=== PATIENT | male | born 1970 | race Caucasian/White ===

== ENCOUNTER 2023-04-05 16:45 | Emergency (ER) | payer OTHER, SELFPAY ==
[2023-04-05] VITALS (11 sets, daily range): BP systolic 126–176; BP diastolic 74–95; PULSE 66–98; RESP 14–16; TEMP 36.8; O2SAT 92–100; BMI 26.4
--- NOTE | 2023-04-05 17:23 | ED.MALEGU ---
HPI - Male Genitourinary <Dottie Bull MD - Last Filed: 04/06/23 08:00> General Chief complaint: Urogenital-Male Stated complaint: kidney stone Time Seen by Provider: 04/05/23 16:51 History of Present Illness HPI Narrative: 53-year-old male presents for left-sided flank pain. Two days ago patient was in [facility] and diagnosed with a 9 mm left-sided kidney stone. He states he was told that everything else was ?normal? and discharged home with oxycodone, Flomax, and Zofran. Patient has been taking his pain medications, however his pain is worsening and not controlled with his home medications. He is here today for pain control. He was planning to call a urologist for a follow-up appointment when business hours resume on Thursday. Related Data Previous Rx's Medication Instructions Recorded hydrocodone 5 mg-acetaminophen 325 2 tab PO Q6H PRN pain #20 tabs 04/05/23 mg tablet ondansetron 4 mg disintegrating 4 mg PO Q8H PRN nausea and 04/05/23 tablet vomiting #10 tabs tamsulosin 0.4 mg capsule (Flomax) 0.4 mg PO BEDTIME #10 caps 04/05/23 Allergies Allergy/AdvReac Type Severity Reaction Status Date / Time No Known Drug Allergies Allergy Verified 04/05/23 17:29 Review of Systems <Dottie Bull MD - Last Filed: 04/06/23 08:00> Review of Systems Narrative: CONSTITUTIONAL- Denies: fever, chills, fatigue HEENT- Denies: sore throat, nosebleed, vision changes RESPIRATORY- Denies: shortness of breath, cough, wheezing CARDIAC- Denies: chest pain, edema, orthopnea GI- Denies: abdominal pain, nausea, vomiting, constipation, diarrhea -reports: Flank pain Denies: frequency, dysuria, hematuria MSK- Denies: extremity pain, extremity swelling, joint pain, joint swelling SKIN- Denies: rash, itching, burn, swelling NEUROLOGICAL- Denies: headache, numbness, weakness, dizziness PSYCHIATRIC- Denies: anxiety, depression, suicidal ideation, homicidal ideation Patient History <Dottie Bull MD - Last Filed: 04/06/23 08:00> Social History Smoking Status: Never smoker Smoking Status: Never smoker Exam <Dottie Bull MD - Last Filed: 04/06/23 08:00> Initial Vital Signs Initial Vital Signs: Vital Signs Temperature 98.3 F 04/05/23 16:47 Pulse Rate 98 H 04/05/23 16:47 Respiratory Rate 16 04/05/23 16:47 Blood Pressure 144/86 H 04/05/23 16:47 Pulse Oximetry 97 04/05/23 16:47 Oxygen Delivery Method Room Air 04/05/23 16:47 Const: Well-nourished, Well-developed, appears stated age Eyes: PERRL, EOMI, conjunctiva normal ENT: Atraumatic, dentition normal, mucous membranes moist Cardiac: regular rate, regular rhythm RESP: unlabored, clear bilaterally, no wheezing GI: Atraumatic, soft, nontender, nondistended, no rebound, no guarding MSK: Atraumatic, full range of motion, pulses equal Skin: Warm, Dry, intact, no rashes Neuro: AO x3, CN II-XII grossly intact, moves all extremities Psych: affect normal, mood normal, not suicidal, not homicidal <Shannan Carey DO - Last Filed: 04/06/23 01:07> Initial Vital Signs Initial Vital Signs: Vital Signs Temperature 98.3 F 04/05/23 16:47 Pulse Rate 98 H 04/05/23 16:47 Respiratory Rate 16 04/05/23 16:47 Blood Pressure 144/86 H 04/05/23 16:47 Pulse Oximetry 97 04/05/23 16:47 Oxygen Delivery Method Room Air 04/05/23 16:47 Course <Dottie Bull MD - Last Filed: 04/06/23 08:00> Course Course Narrative: Persistent flank pain in patient with known 9 mm kidney stone. We will check labs and will order pain medications. Orders Ordered: Discontinued Medications Hydromorphone HCl (Hydromorphone 0.5 Mg Inj) 0.5 mg IV NOW ONE Stop: 04/05/23 19:47 Last Admin: 04/05/23 19:54 Dose: 0.5 mg Documented By: KLS Sodium Chloride (Normal Saline 0.9%) 1,000 mls @ 1,000 mls/hr IV BOLUS ONE Stop: 04/05/23 18:16 Last Infusion: 04/05/23 18:59 Dose: 0 mls/hr Documented By: Admin: 04/05/23 17:30 Dose: 1,000 mls/hr Documented By: EDMOND Ketorolac Tromethamine (Ketorolac 30 Mg/Ml Vial) 15 mg IV NOW ONE Stop: 04/05/23 17:18 Last Admin: 04/05/23 17:26 Dose: 15 mg Documented By: EDMOND Morphine Sulfate (Morphine 4 Mg/Ml Inj) 4 mg IV NOW ONE Stop: 04/05/23 17:45 Last Admin: 04/05/23 17:53 Dose: 4 mg Documented By: SUKHWINDER Reevaluation(s) Reevaluation #1: Creatinine 1.8, GFR 44. No previous for comparison. Patient states he does not have his lab results from his previous ER visit 2 days ago, but was told that everything was ?normal?. Given that patient has no 9 mm kidney stone we will obtain renal ultrasound to assess for hydro or other acute abnormalities. Pain is still present despite Toradol, will give morphine. IV fluids are running. Reevaluation #2: Care of patient signed out to Dr. Carey at 1830 Vital Signs Vital signs: Vital Signs - 8 hr 04/05/23 17:53 04/05/23 17:53 04/05/23 18:00 Pulse Rate 76 Respiratory Rate Blood Pressure 142/78 H 126/77 Pulse Oximetry 94 Oxygen Delivery Method 04/05/23 18:00 04/05/23 18:15 04/05/23 18:15 Pulse Rate 77 74 Respiratory Rate Blood Pressure 151/86 H Pulse Oximetry 92 95 Oxygen Delivery Method Room Air 04/05/23 18:40 04/05/23 18:41 04/05/23 18:41 Pulse Rate 78 76 Respiratory Rate Blood Pressure 139/81 Pulse Oximetry 94 94 Oxygen Delivery Method 04/05/23 18:45 04/05/23 18:45 04/05/23 19:00 Pulse Rate 74 Respiratory Rate Blood Pressure 133/74 137/81 Pulse Oximetry 93 Oxygen Delivery Method 04/05/23 19:00 04/05/23 19:15 04/05/23 19:15 Pulse Rate 66 72 Respiratory Rate 14 Blood Pressure 147/95 H Pulse Oximetry 93 94 Oxygen Delivery Method 04/05/23 20:22 04/05/23 20:23 04/05/23 20:23 Pulse Rate 72 Respiratory Rate Blood Pressure 176/86 H Pulse Oximetry 100 98 Oxygen Delivery Method Room Air <Shannan Carey DO - Last Filed: 04/06/23 01:07> Orders Ordered: Discontinued Medications Hydromorphone HCl (Hydromorphone 0.5 Mg Inj) 0.5 mg IV NOW ONE Stop: 04/05/23 19:47 Last Admin: 04/05/23 19:54 Dose: 0.5 mg Documented By: GODWIN Sodium Chloride (Normal Saline 0.9%) 1,000 mls @ 1,000 mls/hr IV BOLUS ONE Stop: 04/05/23 18:16 Last Infusion: 04/05/23 18:59 Dose: 0 mls/hr Documented By: Admin: 04/05/23 17:30 Dose: 1,000 mls/hr Documented By: EDMOND Ketorolac Tromethamine (Ketorolac 30 Mg/Ml Vial) 15 mg IV NOW ONE Stop: 04/05/23 17:18 Last Admin: 04/05/23 17:26 Dose: 15 mg Documented By: EDMOND Morphine Sulfate (Morphine 4 Mg/Ml Inj) 4 mg IV NOW ONE Stop: 04/05/23 17:45 Last Admin: 04/05/23 17:53 Dose: 4 mg Documented By: SUKHWINDER Vital Signs Vital signs: Vital Signs - 8 hr 04/05/23 17:53 04/05/23 17:53 04/05/23 18:00 Pulse Rate 76 Respiratory Rate Blood Pressure 142/78 H 126/77 Pulse Oximetry 94 Oxygen Delivery Method 04/05/23 18:00 04/05/23 18:15 04/05/23 18:15 Pulse Rate 77 74 Respiratory Rate Blood Pressure 151/86 H Pulse Oximetry 92 95 Oxygen Delivery Method Room Air 04/05/23 18:40 04/05/23 18:41 04/05/23 18:41 Pulse Rate 78 76 Respiratory Rate Blood Pressure 139/81 Pulse Oximetry 94 94 Oxygen Delivery Method 04/05/23 18:45 04/05/23 18:45 04/05/23 19:00 Pulse Rate 74 Respiratory Rate Blood Pressure 133/74 137/81 Pulse Oximetry 93 Oxygen Delivery Method 04/05/23 19:00 04/05/23 19:15 04/05/23 19:15 Pulse Rate 66 72 Respiratory Rate 14 Blood Pressure 147/95 H Pulse Oximetry 93 94 Oxygen Delivery Method 04/05/23 20:22 04/05/23 20:23 04/05/23 20:23 Pulse Rate 72 Respiratory Rate Blood Pressure 176/86 H Pulse Oximetry 100 98 Oxygen Delivery Method Room Air MDM - Male Genitourinary <Dottie Bull MD - Last Filed: 04/06/23 08:00> Lab Data 04/05/23 17:15 04/05/23 17:15 Labs: Lab Results 04/05/23 04/05/23 04/05/23 Range/Units 17:15 17:15 18:57 WBC 6.7 (4.5-11.0) X10^3/uL RBC 4.22 L (4.5-5.9) X10^6/uL Hgb 13.6 (13.5-17.5) g/dL Hct 39.2 L (41-53) % MCV 93.0 (80-100) fL MCH 32.3 (26-34) PG MCHC 34.7 (30-36) % RDW 12.9 (11.6-14.8) % Plt Count 166 (150-400) X10^3/uL Neut % (Auto) 65.6 (50-75) % Lymph % (Auto) 21.2 L (25-40) % Hughes % (Auto) 11.8 (3-14) % Eos % (Auto) 0.8 L (2-4) % Baso % (Auto) 0.6 (0-2) % Neut # (Auto) 4400 (4658-6197) /uL Lymph # (Auto) 1400 (8240-0041) /uL Hughes # (Auto) 800 (0-900) /uL Eos # (Auto) 100 (0-450) /uL Baso # (Auto) 0 (0-100) /uL Sodium 136 L (137-145) mmol/L Potassium 4.0 (3.4-5.1) mmol/L Chloride 103 (98-107) mmol/L Carbon Dioxide 26 (22-32) mmol/L BUN 13 (9-20) mg/dL Creatinine 1.82 H (0.66-1.25) mg/dL Estimated GFR 44 L (>60) mL/min BUN/Creatinine Ratio 7.1 (6-22) Glucose 115 H (70-100) mg/dL Calcium 8.7 (8.4-10.2) mg/dL Total Bilirubin 0.4 (0.2-1.3) mg/dL AST 40 (17-59) IU/L ALT 43 (<50) IU/L Alkaline Phosphatase 62 (38-126) U/L Total Protein 6.9 (6.3-8.2) g/dL Albumin 4.0 (3.5-5.0) g/dL Globulin 2.9 (1.7-4.1) g/dL Albumin/Globulin Ratio 1.4 (1.0-2.8) Urine Color Yellow Urine Appearance Clear Urine pH 5.5 (4.5-8.0) Ur Specific [place] 1.020 (1.000-1.035) Urine Protein Negative (Negative) Urine Glucose (UA) Negative (Negative) g/dL Urine Ketones Trace H (NEGATIVE) Urine Occult Blood Negative (Negative) Urine Nitrate Negative (Negative) Urine Bilirubin Negative (NEGATIVE) Urine Urobilinogen 0.2 (0.2) E.U./dL Ur Leukocyte Esterase Negative (NEGATIVE) Urine RBC None seen (0-5/HPF) Urine WBC 0-1/hpf (0-5/HPF) Ur Squamous Epith Cells None seen (0-5/HPF) Urine Bacteria None seen (None) Ur Culture Indicated? Cult not indicated <Shannan Carey, DO - Last Filed: 04/06/23 01:07> Lab Data Labs: Lab Results 04/05/23 04/05/23 04/05/23 Range/Units 17:15 17:15 18:57 WBC 6.7 (4.5-11.0) X10^3/uL RBC 4.22 L (4.5-5.9) X10^6/uL Hgb 13.6 (13.5-17.5) g/dL Hct 39.2 L (41-53) % MCV 93.0 (80-100) fL MCH 32.3 (26-34) PG MCHC 34.7 (30-36) % RDW 12.9 (11.6-14.8) % Plt Count 166 (150-400) X10^3/uL Neut % (Auto) 65.6 (50-75) % Lymph % (Auto) 21.2 L (25-40) % Hughes % (Auto) 11.8 (3-14) % Eos % (Auto) 0.8 L (2-4) % Baso % (Auto) 0.6 (0-2) % Neut # (Auto) 4400 (6525-6514) /uL Lymph # (Auto) 1400 (2893-9565) /uL Hughes # (Auto) 800 (0-900) /uL Eos # (Auto) 100 (0-450) /uL Baso # (Auto) 0 (0-100) /uL Sodium 136 L (137-145) mmol/L Potassium 4.0 (3.4-5.1) mmol/L Chloride 103 (98-107) mmol/L Carbon Dioxide 26 (22-32) mmol/L BUN 13 (9-20) mg/dL Creatinine 1.82 H (0.66-1.25) mg/dL Estimated GFR 44 L (>60) mL/min BUN/Creatinine Ratio 7.1 (6-22) Glucose 115 H (70-100) mg/dL Calcium 8.7 (8.4-10.2) mg/dL Total Bilirubin 0.4 (0.2-1.3) mg/dL AST 40 (17-59) IU/L ALT 43 (<50) IU/L Alkaline Phosphatase 62 (38-126) U/L Total Protein 6.9 (6.3-8.2) g/dL Albumin 4.0 (3.5-5.0) g/dL Globulin 2.9 (1.7-4.1) g/dL Albumin/Globulin Ratio 1.4 (1.0-2.8) Urine Color Yellow Urine Appearance Clear Urine pH 5.5 (4.5-8.0) Ur Specific [place] 1.020 (1.000-1.035) Urine Protein Negative (Negative) Urine Glucose (UA) Negative (Negative) g/dL Urine Ketones Trace H (NEGATIVE) Urine Occult Blood Negative (Negative) Urine Nitrate Negative (Negative) Urine Bilirubin Negative (NEGATIVE) Urine Urobilinogen 0.2 (0.2) E.U./dL Ur Leukocyte Esterase Negative (NEGATIVE) Urine RBC None seen (0-5/HPF) Urine WBC 0-1/hpf (0-5/HPF) Ur Squamous Epith Cells None seen (0-5/HPF) Urine Bacteria None seen (None) Ur Culture Indicated? Cult not indicated Imaging Data US - abdomen: Radiologist's Impression: PROCEDURE:? US RENAL COMPLETE ? INDICATIONS:? ACUTE KIDNEY INJURY. LEFT PROXIMAL URETEROLITHIASIS. ? TECHNIQUE:? Real-time scanning was performed of the kidneys and bladder, with image documentation.? ? COMPARISON:? None available at the time of this dictation. ? FINDINGS:? ? Kidneys:? Kidneys are normal in size.? Right kidney measures 11.7 cm long; left kidney measures 10.8 cm long.? Right renal cortical thickness is 1.7 cm; left renal cortical thickness is 1.7 cm.? Renal cortical echotexture is normal.? No nephrolithiasis.? No suspicious solid mass lesions.? ? On the left, there is trace pelvicaliectasis.? The left proximal ureter is dilated to 8 mm. ? The previously seen left ureteral stone is not seen on this study.? ? Bladder:? Pre-void bladder volume is 108 mL.? Post-void residual is 14 mL.? Pre-void images demonstrate no intraluminal masses or stones.? On pre-void images, only the right ureteral jet can be seen with color Doppler interrogation.? (Of note, ureteral jets may not be detectable in up to 25% of cases due to insufficient differences in specific gravity between ureteral and bladder urine).? ? Miscellaneous:? No free pelvic fluid.? IMPRESSION:? Left-sided hydroureter, with prominence of the left renal pelvis. ? The left ureteral jet is not seen.? Differential diagnosis includes a recently passed stone versus continued ureteral stone. ? On these ultrasound images, no ureteral stone is seen. ? Mild postvoid residual, 14 cc. ? ? Dictated by: Darshan Henley M.D. on 04/05/2023 at 18:10 MDM Narrative Medical decision making narrative: Dr. Carey-patient signed out to me by Dr. Bull seen evaluated patient myself. He is ambulatory to the restroom without difficulty. He has a no 9 mm stone diagnosed by CT and bend organ. He continues to have pain reports that he is taking 1 [place] every 6 hours pain is not yet controlled. Urinalysis is negative creatinine today is 1.82 unknown what it was previously. No evidence of infection. Pain options discussed with him he is given Toradol morphine and Dilaudid here in the ED we will give him some more [place] at home he continues to take Flomax. He will need urology follow-up. Discharge Plan Departure Patient Disposition: Home Clinical Impression: Acute flank pain, Calculus, renal, Creatinine elevation Instructions: DI for Kidney Stones Activity Restrictions/Additional Instructions: * You've been diagnosed with kidney stone * What to do: Please be sure to stay hydrated recommend Gatorade or Gatorade like product along with water * Please follow-up with your primary care provider in the next 2-3 days, you may require urology consultation please discuss this with -If you should have fever, or pain is uncontrolled with medication at home or any other concerning symptoms return to ER for further evaluation MEDICATIONS--> [facility] Motrin 600 mg every 8 hours as needed for pain Take [place] 2 tablets every 6 hours or 1 tablet every 4 if needed for severe pain Take Zofran every 4-6 hours if needed for nausea Flomax once daily CONTROLLED SUBSTANCE DISCHARGE (Narcotoic/benzodiazepine) 1. You have been prescribed narcotic medications, it does have acetaminophen/Tylenol/paracetamol in it so do not take extra Tylenol or Tylenol containing products 2. Please understand that we cannot provide further refills of narcotics, benzodiazepines or controlled substances through the ED and her pain management will need to be through your provider. 3. While on these medications you cannot drive or operate heavy machinery. 4. You cannot sign legal documents or perform any duties such as this. 5. As long as you're taking opiate pain medications he should also be taking a stool softener such as Colace, Dulcolax, MiraLAX or prune juice, to help avoid constipation. Prescriptions: New hydrocodone-acetaminophen 5-325 mg tablet 2 tab PO Q6H PRN (Reason: pain) Qty: 20 0RF tamsulosin [Flomax] 0.4 mg capsule 0.4 mg PO BEDTIME Qty: 10 0RF ondansetron 4 mg tablet,disintegrating 4 mg PO Q8H PRN (Reason: nausea and vomiting) Qty: 10 0RF Referrals: Vance Russell MD [Physician] - Fredy Daniel MD [Physician] - Stand Alone Forms: Patient Portal/API
[2023-04-05] MEDS: KETOROLAC 30 MG/ML VIAL 15 MG IV (17:26)
[2023-04-05] MEDS: SODIUM CHLORIDE 0.9% 1,000 ML 1000 ML IV (17:30)
[2023-04-05 17:32] LABS: Alanine Aminotransferase 43 IU/L (<50); Albumin Globulin Ratio 1.4 (1.0-2.8); Alkaline Phosphatase 62 U/L (38-126); Aspartate Aminotransferase 40 IU/L (17-59); BUN Creatinine Ratio 7.1 (6-22); Bilirubin Total 0.4 mg/dL (0.2-1.3); Blood Urea Nitrogen 13 mg/dL (9-20); Calcium 8.7 mg/dL (8.4-10.2); Carbon Dioxide 26 mmol/L (22-32); Chloride 103 mmol/L (98-107); Estimated Glomerular Filt Rate 44 mL/min (>60); Globulin 2.9 g/dL (1.7-4.1); Glucose 115 mg/dL (70-100); HEMOLYSIS < 15 (0-50); Sodium 136 mmol/L (137-145); Total Protein 6.9 g/dL (6.3-8.2)
[2023-04-05 17:35] LABS: Add Manual Diff / Slide Review NO; Basophils Absolute Auto 0 /uL (0-100); Basophils Percent Auto 0.6 % (0-2); Eosinophils Absolute Auto 100 /uL (0-450); Eosinophils Percent Auto 0.8 % (2-4); Hematocrit 39.2 % (41-53); Hemoglobin 13.6 g/dL (13.5-17.5); Lymphocytes Absolute Auto 1400 /uL (1100-4500); Lymphocytes Percent Auto 21.2 % (25-40); Mean Corpuscular HGB Conc 34.7 % (30-36); Mean Corpuscular Hemoglobin 32.3 PG (26-34); Monocytes Absolute Auto 800 /uL (0-900); Monocytes Percent Auto 11.8 % (3-14); Neutrophils Absolute Auto 4400 /uL (1500-7000); Neutrophils Percent Auto 65.6 % (50-75); Platelet Count 166 X10^3/uL (150-400); Red Blood Cell Count 4.22 X10^6/uL (4.5-5.9); Red Cell Distribution Width 12.9 % (11.6-14.8); White Blood Cell Count 6.7 X10^3/uL (4.5-11.0)
--- NOTE | 2023-04-05 17:44 | DI.US.S_ITS ---
PROCEDURE: US RENAL COMPLETE INDICATIONS: ACUTE KIDNEY INJURY. LEFT PROXIMAL URETEROLITHIASIS. TECHNIQUE: Real-time scanning was performed of the kidneys and bladder, with image documentation. COMPARISON: None available at the time of this dictation. FINDINGS: Kidneys: Kidneys are normal in size. Right kidney measures 11.7 cm long; left kidney measures 10.8 cm long. Right renal cortical thickness is 1.7 cm; left renal cortical thickness is 1.7 cm. Renal cortical echotexture is normal. No nephrolithiasis. No suspicious solid mass lesions. On the left, there is trace pelvicaliectasis. The left proximal ureter is dilated to 8 mm. The previously seen left ureteral stone is not seen on this study. Bladder: Pre-void bladder volume is 108 mL. Post-void residual is 14 mL. Pre-void images demonstrate no intraluminal masses or stones. On pre-void images, only the right ureteral jet can be seen with color Doppler interrogation. (Of note, ureteral jets may not be detectable in up to 25% of cases due to insufficient differences in specific gravity between ureteral and bladder urine). Miscellaneous: No free pelvic fluid. IMPRESSION: Left-sided hydroureter, with prominence of the left renal pelvis. The left ureteral jet is not seen. Differential diagnosis includes a recently passed stone versus continued ureteral stone. On these ultrasound images, no ureteral stone is seen. Mild postvoid residual, 14 cc. Dictated by: Darshan Henley M.D. on 04/05/2023 at 18:10 Approved by: Darshan Henley M.D. on 04/05/2023 at 18:12
[2023-04-05] MEDS: MORPHINE 4 MG/ML INJ IV (17:53)
[2023-04-05 19:03] LABS: Appearance Urine UA CLEAR; Bilirubin Urine UA NEGATIVE (NEGATIVE); Color Urine UA YELLOW; Glucose Urine UA NEGATIVE (Negative); Ketones Urine UA TRACE (NEGATIVE); Leukocyte Esterase Urine UA NEGATIVE (NEGATIVE); Nitrite Urine UA NEGATIVE (Negative); Occult Blood Urine UA NEGATIVE (Negative); Protein Urine UA NEGATIVE (Negative); Urobilinogen Urine UA 0.2 E.U./dL (0.2); pH Urine UA 5.5 (4.5-8.0)
[2023-04-05 19:15] LABS: Bacteria Urine None Seen; Culture Indicated Urine Cult Not Indicated; RBC Urine None Seen (0-5/HPF); Squamous Epithelial Cell Urine None Seen (0-5/HPF); WBC Urine 0-1/HPF (0-5/HPF)
[2023-04-05] MEDS: HYDROMORPHONE 0.5 MG INJ IV (19:54)
== END 2023-04-05 20:31 | disposition home or self-care (01) ==
PROVIDERS: Emergency Medicine; Emergency Provider Emergency Medicine
DX: N20.0 Calculus of kidney (principal); R94.4 Abnormal results of kidney function studies
CPT/HCPCS: 36415; 76770; 80053; 81001; 85025; 96374; 96375; 99284; J1170; J1885; J2270